=== PATIENT | female | born 1970 ===

== ENCOUNTER 2024-06-16 05:11 | Day surgery (SDC) | payer BC ==
[2024-06-12 17:06] VITALS: BMI 24.9
[2024-06-16 12:39] VITALS: PULSE 71; TEMP 98.1
[2024-06-16 13:11] VITALS: BP 102/65; RESP 17
== END 2024-06-16 13:07 | disposition home or self-care (01) ==
LOC: JASU-ENDO 05:11
PROVIDERS: ATTEND Internal Medicine Gastroenterology
PROC: 0DJD8ZZ Inspection of Lower Intestinal Tract, Via Natural or Artificial Opening Endoscopic (ICD-10-PCS; principal; 2024-06-16 12:10)
DX: Z12.11 Encounter for screening for malignant neoplasm of colon (principal); K64.1 Second degree hemorrhoids